=== PATIENT | male | born 1965 | race Caucasian/White ===

== ENCOUNTER 2017-04-20 16:42 | Inpatient (IN) | payer BC, OTHER ==
[2017-04-20] MEDS ORDERED: Ondansetron 4 MG/2 ML SDV IVPUSH ONE ×2 (16:50→21:25)
[2017-04-20] MEDS ORDERED: Sodium Chloride 0.9% 1,000 ML IV ONE (16:51)
[2017-04-20] MEDS: Sodium Chloride 0.9% 10 ML Syringe FLUSH PRN ×3 (17:13→23:50)
--- NOTE | 2017-04-20 17:58 | EDM.PDOC ---
ED HPI GENERAL MEDICAL PROBLEM - General Chief Complaint: Abdominal Pain Stated Complaint: ABD PAIN Time Seen by Provider: 04/20/17 16:52 Source of Information: Reports: Patient, Family History Limitations: Reports: No Limitations - History of Present Illness INITIAL COMMENTS - FREE TEXT/NARRATIVE: 51 y.o.w m s/o vasectomy in the distant past, came with his mon the ED because of sudden onset of gen abd. pain with N/V.Pt had to leave work early. No dirct trauma. No dizziness or light headedness. BP 106/67 pulse 92 RR 18 Pulse ox 94 % on RA Temp 36.8 Onset: Sudden Onset Date: 04/20/17 Onset Time: 09:00 Duration: Getting Worse Location: Reports: Abdomen Quality: Reports: Ache, Burning, Dull, Pressure, Stabbing, Throbbing Severity: Severe Improves with: Reports: None Worsens with: Reports: Movement Context: Reports: Other (s/p vasectomy, sudden onset of lefy lower abd. pain) Associated Symptoms: Reports: Nausea/Vomiting, Weakness Left Lower Abdomen Pain Score (Numeric/FACES): 6 denies pain as of the moment Pain Score (Numeric/FACES): 0 - Related Data Allergies Allergy/AdvReac Type Severity Reaction Status Date / Time No Known Allergies Allergy Verified 04/20/17 16:52 Home Meds: Home Meds NK [No Known Home Meds] 06/11/14 [History] Past Medical History - Past Health History Medical/Surgical History: Denies Medical/Surgical History - Infectious Disease History Infectious Disease History: Reports: Chicken Pox - Past Surgical History GI Surgical History: Reports: Colonoscopy Male Surgical History: Reports: Vasectomy Social & Family History - Family History Family Medical History: Noncontributory - Tobacco Use Smoking Status *Q: Never Smoker Second Hand Smoke Exposure: No - Caffeine Use Caffeine Use: Reports: None - Alcohol Use Days Per Week of Alcohol Use: 0 - Recreational Drug Use Recreational Drug Use: No ED ROS GENERAL - Review of Systems Review Of Systems: See Below Constitutional: Reports: Malaise, Weakness HEENT: Reports: No Symptoms Respiratory: Reports: No Symptoms Cardiovascular: Reports: No Symptoms Endocrine: Reports: No Symptoms GI/Abdominal: Reports: Abdominal Pain : Reports: No Symptoms Musculoskeletal: Reports: No Symptoms Skin: Reports: No Symptoms Neurological: Reports: No Symptoms Psychiatric: Reports: No Symptoms Hematologic/Lymphatic: Reports: No Symptoms Immunologic: Reports: No Symptoms ED EXAM, GI/ABD - Physical Exam Exam: See Below Exam Limited By: No Limitations General Appearance: Alert, WD/WN, Moderate Distress Eyes: Bilateral: Normal Appearance Ears: Normal External Exam Nose: Normal Inspection, Normal Mucosa Throat/Mouth: Normal Inspection, Normal Lips, Normal Teeth, Normal Gums Head: Atraumatic, Normocephalic Neck: Normal Inspection, Supple, Non-Tender, Full Range of Motion Respiratory/Chest: No Respiratory Distress, Lungs Clear, Normal Breath Sounds Cardiovascular: Normal Peripheral Pulses, Regular Rate, Rhythm, No Edema, No Gallop GI/Abdominal Exam: Distended, Guarding, Rigid, Rebound, Tender, Abnormal Bowel Sounds (Male) Exam: Deferred Rectal (Males) Exam: Deferred Back Exam: Normal Inspection, Full Range of Motion Extremities: Normal Inspection Neurological: Alert, Oriented, CN II-XII Intact, Normal Cognition Psychiatric: Normal Affect, Normal Mood Skin Exam: Warm, Dry, Intact, Normal Color, No Rash Lymphatic: No Adenopathy Course - Vital Signs Text/Narrative:: 51 y.o.w m s/o vasectomy in the distant past, came with his mon the ED because of sudden onset of gen abd. pain with N/V.Pt had to leave work early. No dirct trauma. No dizziness or light headedness. BP 106/67 pulse 92 RR 18 Pulse ox 94 % on RA Temp 36.8 PE: WNWD WM with N/V and abd. pain with guarding and rebound Labs:pending Imaging: Pending Impression: Acute abdomen Tx: YOGESH Palomo 7 pm: Pt was signed out to Dr. Gan at 7 pm due to shift changes. Pending abd, CT results. Lab results Last Recorded V/S: Last Vital Signs Temp 36.9 C 04/22/17 00:00 Pulse 67 04/22/17 00:00 Resp 16 04/22/17 00:00 BP 108/58 L 04/22/17 00:00 Pulse Ox 96 04/22/17 00:00 - Orders/Labs/Meds Orders: Medication Orders Hydrocodone Bitart/Acetaminophen ([place] 325-5 Mg) 1 tab PO Q4H PRN PRN Reason: Pain (mild 1-3) Hydrocodone Bitart/Acetaminophen ([place] 325-5 Mg) 2 tab PO Q4H PRN PRN Reason: Pain (moderate 4-6) Diatrizoate Meglum/Diatrizoate Sod (Gastrografin 37%) 30 ml PO . DIRECTED [facility] Last Admin: 04/20/17 19:04 Dose: 30 ml Enoxaparin Sodium (Lovenox) 30 mg SUBCUT Q24H [facility] Last Admin: 04/21/17 09:28 Dose: 30 mg Lactated Ringer's (Ringers, Lactated) 1,000 mls @ 125 mls/hr IV ASDIRECTED [facility] Last Admin: 04/21/17 20:10 Dose: 125 mls/hr Infusion: 04/21/17 20:10 Dose: 125 mls/hr Admin: 04/21/17 12:11 Dose: 125 mls/hr Infusion: 04/21/17 11:29 Dose: 125 mls/hr Admin: 04/21/17 03:29 Dose: 125 mls/hr Ketorolac Tromethamine (Toradol) 30 mg IVPUSH Q6H [facility] Last Admin: 04/22/17 02:12 Dose: 30 mg Admin: 04/21/17 20:05 Dose: 30 mg Admin: 04/21/17 14:14 Dose: 30 mg Admin: 04/21/17 08:08 Dose: 30 mg Morphine Sulfate (Morphine) 2 mg IVPUSH Q1H PRN PRN Reason: Pain (severe 7-10) Morphine Sulfate (Morphine Map Plotter 30 Mg In 30 Ml) 30 mg IV ASDIRECTED PRN; Protocol PRN Reason: Pain Last Admin: 04/21/17 00:13 Dose: 30 mg Sodium Chloride (Saline Flush) 10 ml FLUSH ASDIRECTED PRN PRN Reason: Keep Vein Open Last Admin: 04/20/17 23:50 Dose: 10 ml Admin: 04/20/17 19:50 Dose: 10 ml Admin: 04/20/17 17:13 Dose: 10 ml Labs: Laboratory Tests 04/20/17 04/20/17 04/20/17 Range/Units 17:10 17:10 19:18 WBC 13.8 H (4.5-12.0) X10-3/uL RBC 6.06 H (4.30-5.75) x10(6)uL Hgb 17.7 H (11.5-15.5) g/dL Hct 51.9 H (30.0-51.3) % MCV 85.5 (80-96) fL MCH 29.2 (27.7-33.6) pg MCHC 34.1 (32.2-35.4) g/dL RDW 12.7 (11.5-15.5) % Plt Count 237 (125-369) X10(3)uL MPV 8.3 (7.4-10.4) fL Neut % (Auto) 84.0 H (46-82) % Lymph % (Auto) 10.2 L (13-37) % [place] % (Auto) 3.2 L (4-12) % Eos % (Auto) 0 L (1.0-5.0) % Baso % (Auto) 3 H (0-2) % Neut # (Auto) 11.6 H (1.6-8.3) # Lymph # (Auto) 1.4 (0.6-5.0) # Kendall # (Auto) 0.4 (0.0-1.3) # Eos # (Auto) 0.0 (0.0-0.8) # Baso # (Auto) 0.4 H (0.0-0.2) # Sodium 141 (135-145) mmol/L Potassium 4.3 (3.5-5.3) mmol/L Chloride 103 (100-110) mmol/L Carbon Dioxide 25 (21-32) mmol/L BUN 16 (7-18) mg/dL Creatinine 1.2 (0.70-1.30) mg/dL Est Cr Clr Drug Dosing 75.36 mL/min Estimated GFR (MDRD) > 60 (>60) BUN/Creatinine Ratio 13.3 (9-20) Glucose 118 H (80-116) mg/dL Calcium 10.3 H (8.6-10.2) mg/dL Total Bilirubin 1.2 (0.1-1.3) mg/dL Direct Bilirubin 0.16 (0.10-0.20) mg/dL AST 21 (5-25) IU/L ALT 31 (12-36) U/L Alkaline Phosphatase 64 (56-112) IU/L Total Protein 8.1 H (6.0-8.0) g/dL Albumin 4.4 (3.5-5.2) g/dL Amylase 86 (25-115) U/L Urine Color Yellow (YELLOW) Urine Appearance Clear (CLEAR) Urine pH 8.0 H (5.0-6.5) Ur Specific [place] 1.010 (1.010-1.025) Urine Protein Negative (NEGATIVE) mg/dL Urine Glucose (UA) Normal (NEGATIVE) mg/dL Urine Ketones Negative (NEGATIVE) mg/dL Urine Occult Blood Negative (NEGATIVE) Urine Nitrite Negative (NEGATIVE) Urine Bilirubin Negative (NEGATIVE) Urine Urobilinogen Normal (NEGATIVE) mg/dL Ur Leukocyte Esterase Negative (NEGATIVE) Urine RBC 0-5 (0) Urine WBC 0-5 (0) Ur Squamous Epith Cells Occasional (NS,R,O) Urine Bacteria Rare H (NS) Meds: Medications Generic Name Dose Route Start Last Admin Trade Name Freq PRN Reason Stop Dose Admin Hydrocodone Bitart/Acetaminophen 1 tab 04/20/17 22:43 [place] 325-5 Mg PO Q4H PRN Pain (mild 1-3) Hydrocodone Bitart/Acetaminophen 2 tab 04/20/17 22:43 [place] 325-5 Mg PO Q4H PRN Pain (moderate 4-6) Diatrizoate Meglum/Diatrizoate Sod 30 ml 04/20/17 18:30 04/20/17 19:04 Gastrografin 37% PO 30 ml . DIRECTED [facility] Administration Enoxaparin Sodium 30 mg 04/21/17 09:00 04/21/17 09:28 Lovenox SUBCUT 30 mg Q24H [facility] Administration Lactated Ringer's 1,000 mls @ 125 mls/hr 04/20/17 22:45 04/21/17 20:10 Ringers, Lactated IV 125 mls/hr ASDIRECTED [facility] Administration Ketorolac Tromethamine 30 mg 04/21/17 08:00 04/22/17 02:12 Toradol IVPUSH 30 mg Q6H [facility] Administration Morphine Sulfate 2 mg 04/20/17 22:43 Morphine IVPUSH Q1H PRN Pain (severe 7-10) Morphine Sulfate 30 mg 04/20/17 22:43 04/21/17 00:13 Morphine Map Plotter 30 Mg In 30 Ml IV 30 mg ASDIRECTED PRN Administration Pain Protocol Sodium Chloride 10 ml 04/20/17 16:46 04/20/17 23:50 Saline Flush FLUSH 10 ml ASDIRECTED PRN Administration Keep Vein Open Discontinued Medications Generic Name Dose Route Start Last Admin Trade Name Willa PRN Reason Stop Dose Admin Cefazolin Sodium Confirm 04/21/17 04:56 04/21/17 05:02 Ancef Administered 04/21/17 04:57 Not Given Dose 1 gm .ROUTE .STK-MED ONE Sodium Chloride 1,000 mls @ 999 mls/hr 04/20/17 16:51 04/20/17 17:15 Normal Saline IV 04/20/17 17:51 999 mls/hr .BOLUS ONE Administration Piperacillin Sod/Tazobactam 50 mls @ 100 mls/hr 04/20/17 18:00 04/21/17 05:32 Sod 3.375 gm/ Sodium Chloride IV 100 mls/hr Q6H [facility] Administration Cefazolin Sodium 1 gm/ Sodium 50 mls @ 200 mls/hr 04/20/17 23:00 04/21/17 00: 58 Chloride IV 04/21/17 07:14 Not Given Q8H [facility] Cefazolin Sodium 1 gm/ Sodium 50 mls @ 200 mls/hr 04/21/17 05:00 04/21/17 05: 06 Chloride IV 04/21/17 13:14 200 mls/hr Q8H [facility] Administration Influenza Virus Vaccine 60 mcg 04/21/17 01:00 Fluzone Quad [id number] IM 04/21/17 01:01 .ONCE ONE Iopamidol 100 ml 04/20/17 18:29 04/20/17 19:04 Isovue-370 (76%) IV 04/20/17 18:30 85 ml . DIRECTED ONE Administration Morphine Sulfate 4 mg 04/20/17 19:39 04/20/17 19:46 Morphine IVPUSH 04/20/17 19:40 4 mg ONETIME ONE Administration Ondansetron HCl 8 mg 04/20/17 16:50 04/20/17 17:22 Zofran IVPUSH 04/20/17 16:51 8 mg ONETIME ONE Administration Departure - Departure Time of Disposition: 23:55 Disposition: Admitted As Inpatient 64 Condition: Fair Clinical Impression: SBO (small bowel obstruction) - Discharge Information
[2017-04-20] MEDS: Piperacillin/Tazobactam 3.375 GM in Sodium Chloride 0.9% 50 ML IV SCH (18:23)
[2017-04-20] MEDS ORDERED: Iopamidol 755 Mg/ML 100 ML Bottle IV ONE (18:29)
[2017-04-20] MEDS ORDERED: Diatrizoate Meglumine/Diatrizoate Sodium 37% 30 ML Bottle PO SCH (18:30)
[2017-04-20] MEDS ORDERED: Morphine 4 MG/ML Syringe IVPUSH ONE (19:39)
[2017-04-20] MEDS ORDERED: Succinylcholine 200 MG/10 ML MDV IV ONE (21:25)
[2017-04-20] MEDS ORDERED: Rocuronium 100 MG/10 ML MDV IV ONE (21:25)
[2017-04-20] MEDS ORDERED: Morphine 10 MG/ML Syringe IM ONE (21:25)
[2017-04-20] MEDS ORDERED: Propofol 200 MG/20 ML SDV IV ONE (21:25)
[2017-04-20] MEDS ORDERED: Dexamethasone 4 MG/ML 5 ML MDV IVPUSH ONE (21:25)
[2017-04-20] MEDS ORDERED: hydrOXYzine HCl 50 MG/ML SDV IM ONE (21:25)
[2017-04-20] MEDS ORDERED: diphenhydrAMINE 50 MG/ML SDV IV ONE (21:25)
[2017-04-20] MEDS ORDERED: ceFAZolin 1 GM Vial IV ONE (21:25)
[2017-04-20] MEDS ORDERED: Neostigmine Methylsulfate 1 MG/ML 5 ML Syringe IV ONE (21:25)
[2017-04-20] MEDS ORDERED: fentaNYL 100 MCG/2 ML SDV IV ONE (21:25)
[2017-04-20] MEDS ORDERED: Ketorolac 30 MG/ML SDV IVPUSH ONE (21:25)
[2017-04-20] MEDS ORDERED: Lactated Ringers 1,000 ML IV ONE (21:25)
[2017-04-20] MEDS ORDERED: Midazolam 1 MG/ML 2 ML SDV IV ONE (21:25)
[2017-04-20] MEDS ORDERED: Morphine PF 30 MG/30 ML PCA Vial IV PRN (22:43)
[2017-04-20] MEDS ORDERED: Morphine 2 MG/ML Syringe IVPUSH PRN (22:43)
[2017-04-20] MEDS ORDERED: Acetaminophen/HYDROcodone 325-5 MG Tab PO PRN (22:43)
--- NOTE | 2017-04-20 22:44 | PCM.OPNOTE ---
- General Post-Op/Procedure Note Date of Surgery/Procedure: 04/20/17 Operative Procedure(s): Exploratory laparotomy with release of small bowel obstruction Findings: Closed loop obstruction in mid jejunum secondary to adhesions. No other abnormalities noted Pre Op Diagnosis: Small bowel obstruction Post-Op Diagnosis: Same Anesthesia Technique: General ET Tube Primary Surgeon: Rick Castellanos Pathology: none Output, Urine Amount: 0 EBL in mLs: 50 Complications: None Condition: Fair
[2017-04-20] MEDS ORDERED: ceFAZolin 1 GM in Sodium Chloride 0.9% 50 ML IV SCH (23:00)
[2017-04-21] MEDS: Piperacillin/Tazobactam 3.375 GM in Sodium Chloride 0.9% 50 ML IV SCH ×2 (00:24→05:32)
[2017-04-21] MEDS ORDERED: FLU Vacc QS 2017-18 (36mos UP)/PF 60 MCG/0.5 ML Syringe IM ONE (01:00)
--- NOTE | 2017-04-21 01:10 | HP ---
ADMISSION DATE: 04/20/2017 EMERGENCY ROOM CONSULTATION AND HISTORY AND PHYSICAL HISTORY: This 51-year-old male was feeling well this morning until early during the work day, he began developing lower abdominal pain. This pain persisted continuously and progressed to the point where within an hour or two, he was unable to continue working and had to go home. Throughout the day, the pain has continued and prompted his presentation to the emergency room. He describes the pain as most severe in the lower abdomen and left lower quadrant, but it has been somewhat diffuse throughout the late afternoon and evening. The pain is also recently increased with activity such as walking or riding in a car. He did not feel that the pain was crampy, but more a continuous pain. This pain has been associated with multiple episodes of vomiting. He says his last bowel movement was yesterday morning. He has not had any stool or flatus today. He has been able to void normally. Over the last several weeks, he has noticed his appetite to be slightly decreased, although his weight has stayed the same, and also associated with this noticed a slight increasing constipation, but generally his bowel function has been satisfactory and he has not seen any blood in the stool. The patient has never had any similar symptoms. Upon presentation to the emergency room, the patient has been evaluated and blood work has been drawn. Significant abnormalities of note, a slightly increased WBC of over 13,000 and increased hemoglobin at 17.7. Liver functions are normal. Potassium is 4.3, and urinalysis is unremarkable. The patient underwent a CT scan of the abdomen and pelvis. This was interpreted by the radiologist as showing a small bowel obstruction with a rather sharp transition between dilated and normal caliber small bowel in the left lower quadrant. There was also noted a renal stone, but no other significant abnormalities were noted. Specifically, his organs appeared normal and there was no indication of diverticulitis. PAST MEDICAL HISTORY: Notes that he has been generally healthy. MEDICATIONS: He does not take routine prescription medications. ALLERGIES: He has no known drug allergies. PAST SURGICAL HISTORY: He has never had any previous abdominal or pelvic surgery. His only previous procedure was vasectomy. SOCIAL HISTORY: He does not smoke, although he says he was exposed to secondhand smoke as a child. The patient is . He lives in [place], and he works at [employer], generally a sedentary job. FAMILY HISTORY: Negative for any known serious health problems in his parents. He does recall that his father had some unknown bowel difficulty, but he does not know the specific diagnosis. SYSTEM REVIEW: The patient denies any recent cough, cold, or sore throat symptoms. He has not been experiencing any chest pain or palpitations. No shortness of breath or difficulty breathing. Generally, his appetite has been good up until this episode. No difficulty voiding. He does relate having had a colonoscopy, which was normal about 1 to 2 years ago. No extremity complaints with no unusual joint pain or extremity swelling. PHYSICAL EXAMINATION: VITAL SIGNS: Temperature is 98.1, pulse 67, and blood pressure is 140/77. Weight is 168.5 pounds. GENERAL: The patient is an alert adult male, somewhat anxious with the abdominal pain, but in no acute distress. HEENT: His head is normocephalic. There is no scleral icterus. No cervical masses are noted. NECK: Supple. HEART: Regular. LUNGS: Clear. Breath sounds are equal. There is no wheezing. He has no CVA tenderness to percussion. ABDOMEN: Shows generalized mild distention. He has tenderness to direct palpation and more fullness in the left abdomen, both upper and lower quadrants than on the right, although I do not feel a specific mass. INGUINAL: Reveals no palpable inguinal hernias or tenderness. EXTREMITIES: Show no obvious deformity or ankle edema. NEUROLOGIC: The patient is alert. No gross cognitive deficit, and no evidence of muscular weakness. IMPRESSION: Small bowel obstruction, etiology unclear. The patient's symptoms have persisted without significant improvement for over 12 hours. He has not had previous abdominal surgery, and after reviewing options, it was felt that the safest course of action for this patient is urgent laparotomy to identify and relieve the source of obstruction and try and minimize the risk of any vascular compromise of the bowel. I have discussed the proposed operative procedure with the patient, reviewing indications, options, and risks of surgery as well as the option of observation, and after consideration, he agrees to proceed with urgent laparotomy. This will be performed tonight under general anesthesia. /[id number] JEREMIAS/MIRYAM
--- NOTE | 2017-04-21 02:48 | ER ---
DATE SEEN: 04/20/2017 CHIEF COMPLAINT: Abdominal pain. HISTORY OF PRESENT ILLNESS: This is a 51-year-old male complaining of abdominal pain that started about 6 o'clock this morning, progressively getting worse, dull ache, constant and steady, associated with nausea and vomiting. Also, has had no stools since yesterday morning. REVIEW OF SYSTEMS: No fever or chills. PAST SURGICAL HISTORY: No abdominal surgeries. ALLERGIES: No known allergies. PHYSICAL EXAMINATION: VITAL SIGNS: Normal blood pressure. Temperature is normal. ENT: Negative. CHEST: Clear. ABDOMEN: Soft, tender to palpation, with no rebound or rigidity. Bowel sounds were increased. DIAGNOSTIC DATA: Labs shows a white cell count of 13,000. UA is negative. CT, possible small bowel obstruction, perhaps ureteric calculi on the left. IMPRESSION: Abdominal pain. PLAN: One liter of normal saline was given, 4 mg of IV morphine. Dr. Castellanos was consulted for the abdominal pain. TIME SEEN: 1930 hours. /[id number] ERASMO/MIRYAM
[2017-04-21] MEDS: Lactated Ringers 1,000 ML IV SCH ×3 (03:29→20:10)
[2017-04-21] MEDS ORDERED: ceFAZolin 1 GM Vial ONE (04:56)
[2017-04-21] MEDS ORDERED: ceFAZolin 1 GM in Sodium Chloride 0.9% 50 ML IV SCH (05:00)
--- NOTE | 2017-04-21 07:41 | PCM.SURGPN ---
- General Info Date of Service: 04/21/17 Date of Surgery/Procedure: 04/20/17 POD#: 1 Post-Op Diagnosis: Small Bowel Obstruction secondary to adhesions Functional Status: Reports: Pain Controlled (abdomen feels much better than pre op, minimal pain when not moving) - Review of Systems Pulmonary: Reports: No Symptoms Gastrointestinal: Denies: Nausea, Vomiting Genitourinary: Reports: No Symptoms (voided this am) Musculoskeletal: Denies: Leg Pain - Patient Data Vitals - Most Recent: Last Vital Signs Temp 97.6 F 04/21/17 03:31 Pulse 87 04/21/17 03:31 Resp 18 04/21/17 03:31 BP 100/58 L 04/21/17 03:31 Pulse Ox 96 04/21/17 03:31 Weight - Most Recent: 165 lb I&O - Last 24 Hours: Intake & Output 04/20/17 04/21/17 04/21/17 22:59 06:59 14:59 Intake Total 796 Output Total 0 500 Balance 0 296 Lab Results Last 24 Hrs: Laboratory Results - last 24 hr 04/21/17 04/21/17 Range/Units 06:15 06:15 Hgb 15.4 (11.5-15.5) g/dL Hct 44.6 (30.0-51.3) % Potassium 4.1 (3.5-5.3) mmol/L Med Orders - Current: Current Medications Hydrocodone Bitart/Acetaminophen ([place] 325-5 Mg) 1 tab PO Q4H PRN PRN Reason: Pain (mild 1-3) Hydrocodone Bitart/Acetaminophen ([place] 325-5 Mg) 2 tab PO Q4H PRN PRN Reason: Pain (moderate 4-6) Diatrizoate Meglum/Diatrizoate Sod (Gastrografin 37%) 30 ml PO . DIRECTED [facility] Last Admin: 04/20/17 19:04 Dose: 30 ml Enoxaparin Sodium (Lovenox) 30 mg SUBCUT Q24H [facility] Piperacillin Sod/Tazobactam (Sod 3.375 gm/ Sodium Chloride) 50 mls @ 100 mls/ hr IV Q6H [facility] Last Admin: 04/21/17 05:32 Dose: 100 mls/hr Lactated Ringer's (Ringers, Lactated) 1,000 mls @ 125 mls/hr IV ASDIRECTED [facility] Last Admin: 04/21/17 03:29 Dose: 125 mls/hr Cefazolin Sodium 1 gm/ Sodium (Chloride) 50 mls @ 200 mls/hr IV Q8H [facility] Stop: 04/21/17 13:14 Last Admin: 04/21/17 05:06 Dose: 200 mls/hr Morphine Sulfate (Morphine) 2 mg IVPUSH Q1H PRN PRN Reason: Pain (severe 7-10) Morphine Sulfate (Morphine Generating Station Mechanic 30 Mg In 30 Ml) 30 mg IV ASDIRECTED PRN; Protocol PRN Reason: Pain Last Admin: 04/21/17 00:13 Dose: 30 mg Sodium Chloride (Saline Flush) 10 ml FLUSH ASDIRECTED PRN PRN Reason: Keep Vein Open Last Admin: 04/20/17 23:50 Dose: 10 ml Discontinued Medications Cefazolin Sodium (Ancef) Confirm Administered Dose 1 gm .ROUTE .STK-MED ONE Stop: 04/21/17 04:57 Last Admin: 04/21/17 05:02 Dose: Not Given Sodium Chloride (Normal Saline) 1,000 mls @ 999 mls/hr IV .BOLUS ONE Stop: 04/20/17 17:51 Last Admin: 04/20/17 17:15 Dose: 999 mls/hr Cefazolin Sodium 1 gm/ Sodium (Chloride) 50 mls @ 200 mls/hr IV Q8H [facility] Stop: 04/21/17 07:14 Last Admin: 04/21/17 00:58 Dose: Not Given Influenza Virus Vaccine (Fluzone Quad [id number]) 60 mcg IM .ONCE ONE Stop: 04/21/17 01:01 Iopamidol (Isovue-370 (76%)) 100 ml IV . DIRECTED ONE Stop: 04/20/17 18:30 Last Admin: 04/20/17 19:04 Dose: 85 ml Morphine Sulfate (Morphine) 4 mg IVPUSH ONETIME ONE Stop: 04/20/17 19:40 Last Admin: 04/20/17 19:46 Dose: 4 mg Ondansetron HCl (Zofran) 8 mg IVPUSH ONETIME ONE Stop: 04/20/17 16:51 Last Admin: 04/20/17 17:22 Dose: 8 mg - Exam Wound/Incisions: Dressing Dry and Intact General: Alert, Oriented Lungs: Normal Respiratory Effort GI/Abdominal Exam: Soft, Non-Tender (away from incision), No Distention Extremities: Non-Tender, No Pedal Edema - Problem List Review Problem List Initiated/Reviewed/Updated: Yes - My Orders Last 24 Hours: Active Orders 24 hr Category Date Time Status Patient Status [ADT] Routine ADT 04/20/17 22:44 Active Ambulate [RC] 09,13,17,21 Care 04/20/17 22:43 Active Antiembolic Devices [RC] 08,16,00 Care 04/20/17 22:47 Active Intake and Output [RC] 08,16,00 Care 04/20/17 22:45 Active Oxygen Therapy [RC] PRN Care 04/20/17 22:44 Active RT Incentive Spirometry [RC] Q1HWA Care 04/20/17 22:43 Active VTE/DVT Education [RC] Click to Edit Care 04/20/17 22:47 Active Vital Signs [RC] 04,08,12,16,20,00 Care 04/20/17 22:44 Active Acetaminophen/HYDROcodone [[place] 325-5 MG] Med 04/20/17 22:43 Active 1 tab PO Q4H PRN Acetaminophen/HYDROcodone [[place] 325-5 MG] Med 04/20/17 22:43 Active 2 tab PO Q4H PRN Enoxaparin [Lovenox] Med 04/21/17 09:00 Pending 30 mg SUBCUT Q24H Lactated Ringers [Ringers, Lactated] 1,000 ml Med 04/20/17 22:45 Active IV ASDIRECTED Morphine Med 04/20/17 22:43 Active 2 mg IVPUSH Q1H PRN Morphine PF [Morphine CAR[employer] SURVEYOR 30 MG in 30 ML] Med 04/20/17 22:43 Active 30 mg IV ASDIRECTED PRN ceFAZolin [Ancef] 1 gm Med 04/21/17 05:00 Active Sodium Chloride 0.9% [Normal Saline] 50 ml IV Q8H DVT/VTE Prophylaxis Reflex [OM.PC] Per Unit Routine Oth 04/20/17 22:47 Ordered Sequential Compression Device [OM.PC] Routine Oth 04/20/17 22:43 Ordered Resuscitation Status Routine Resus Stat 04/20/17 22:43 Ordered Medication Orders Hydrocodone Bitart/Acetaminophen ([place] 325-5 Mg) 1 tab PO Q4H PRN PRN Reason: Pain (mild 1-3) Hydrocodone Bitart/Acetaminophen ([place] 325-5 Mg) 2 tab PO Q4H PRN PRN Reason: Pain (moderate 4-6) Diatrizoate Meglum/Diatrizoate Sod (Gastrografin 37%) 30 ml PO . DIRECTED [facility] Last Admin: 04/20/17 19:04 Dose: 30 ml Enoxaparin Sodium (Lovenox) 30 mg SUBCUT Q24H [facility] Piperacillin Sod/Tazobactam (Sod 3.375 gm/ Sodium Chloride) 50 mls @ 100 mls/ hr IV Q6H [facility] Last Admin: 04/21/17 05:32 Dose: 100 mls/hr Admin: 04/21/17 00:24 Dose: 100 mls/hr Admin: 04/20/17 18:23 Dose: 100 mls/hr Lactated Ringer's (Ringers, Lactated) 1,000 mls @ 125 mls/hr IV ASDIRECTED [facility] Last Admin: 04/21/17 03:29 Dose: 125 mls/hr Cefazolin Sodium 1 gm/ Sodium (Chloride) 50 mls @ 200 mls/hr IV Q8H [facility] Stop: 04/21/17 13:14 Last Admin: 04/21/17 05:06 Dose: 200 mls/hr Morphine Sulfate (Morphine) 2 mg IVPUSH Q1H PRN PRN Reason: Pain (severe 7-10) Morphine Sulfate (Morphine Generating Station Mechanic 30 Mg In 30 Ml) 30 mg IV ASDIRECTED PRN; Protocol PRN Reason: Pain Last Admin: 04/21/17 00:13 Dose: 30 mg Sodium Chloride (Saline Flush) 10 ml FLUSH ASDIRECTED PRN PRN Reason: Keep Vein Open Last Admin: 04/20/17 23:50 Dose: 10 ml Admin: 04/20/17 19:50 Dose: 10 ml Admin: 04/20/17 17:13 Dose: 10 ml - Assessment Assessment (Free Text/Narrative):: POD#1 Lysis of adhesions for SBO - doing well - Plan Plan (Free Text/Narrative):: Add Torodal to allow less MS use May have sips of water encouraged ambulation
[2017-04-21] MEDS: Ketorolac 30 MG/ML SDV IVPUSH SCH ×3 (08:08→20:05)
--- NOTE | 2017-04-21 08:40 | CT ---
INDICATION: Lower abdominal pain, tender on left for [address] ABDOMEN AND PELVIS WITH CONTRAST: Spiral 2.5-mm axial sections were obtained through the abdomen and pelvis with oral and IV contrast (85 mL Isovue- 370 at 2.4 mL per second), with sagittal and coronal reconstructions, 2017 - no comparisons. Total Exam DLP = 528.32 mGy-cm. The lower lung kumar and pleural spaces visualized appeared normal. The heart appeared normal in size. No gallstones are demonstrated. The liver, spleen, pancreas, adrenal glands, and right kidney were unremarkable. The left kidney showed evidence of a tiny low-density lesion in the upper pole anterior cortex and in the upper pole posteromedial cortex, most likely representing benign cystic structures. They are of tiny size, however, and are not able to be definitively described otherwise. The appendix was visualized on axial images #138 through #148 and appeared normal. The urinary bladder was unremarkable. No definite obstructive uropathy is seen. There is, however, noted a duplex collecting system at the left kidney with the lower pole collecting system slightly more dilated than the upper and filling out less promptly with contrast than the upper. Likely this does not represent obstructive uropathy, as the presence of an 8-mm calcific density at the base of the bladder is apparently more caudal in location than the actual ureterovesical junction. There is dilatation of the proximal small bowel loops - jejunum to the mid jejunum, there there is a sudden cutoff - fusiform narrowing and narrowing of the small bowel at that site along the lateral aspect of the lower left abdomen - at the upper-most pelvis. Subsequently, the small bowel loops were normal in caliber beyond that site. At that site, there appears to be some thickening of the wall of the small bowel, limited to that area. A process such as Crohn's disease would be a consideration, but should be correlated clinically. A neoplastic process is felt to be less likely. Follow-up studies may be warranted. The remainder of the bowel was unremarkable, with gas still seen within the colon to the rectal area, suggesting an incomplete obstructive process of mechanical nature, best seen on coronal images #29 through #39. No other organomegaly, mass lesions, or free fluid collections were identified. No retroperitoneal masses were seen. IMPRESSION: Findings are compatible with a small-bowel obstruction of mechanical nature at the level of the mid jejunum in the left flank laterally. The obstruction does not appear to be complete, as there is gas in the colon and more distal small bowel. There does appear to be slight thickening of the wall of the immediately adjacent small bowel, distal to the dilated jejunum. Etiology is indeterminate. The possibility of a process such as Crohn's disease is unable to be excluded. However, there is no fat stranding surrounding that loop of bowel to strongly suggest a significant inflammatory process. A neoplastic process, however, is felt to be unlikely with this appearance. Follow-up may be warranted, depending upon clinical course. CT PELVIS: Examination of the pelvis was obtained by CT, as noted above, and revealed dilated loops of small bowel, the site of obstruction of which is in the left flank - left lower quadrant - upper pelvis. No other organomegaly, mass lesions, or free fluid collections were identified in the pelvis. Report was called to Dr. Gan at 1935 hours, 04/20/2017. [facility]
[2017-04-21] MEDS: Enoxaparin 30 MG/0.3 ML Syringe SUBCUT SCH (09:28)
--- NOTE | 2017-04-21 09:42 | OR ---
DATE OF OPERATION: 04/20/2017 SURGEON: Rick Castellanos MD PREOPERATIVE DIAGNOSIS: Acute small bowel obstruction. POSTOPERATIVE DIAGNOSIS: Acute closed loop small bowel obstruction secondary to adhesions. OPERATION PERFORMED: Exploratory laparotomy with release of small bowel obstruction. INDICATIONS FOR SURGERY: This 51-year-old male presented with a greater than 12- hour history of continued abdominal pain, vomiting, and distention. CT scan identified findings consistent with a small bowel obstruction with a dilated loop of bowel in the left side of the abdomen. Radiologist interpreted a sharp cut off between dilated and compressed small bowel consistent with this near- complete obstruction. FINDINGS: The patient had a closed loop complete obstruction of the small bowel in the mid jejunum. This appeared to be secondary to adhesions. The bowel caught in the loop was distended, reddish in color, and slightly dusky on appearance initially, but after release, it seemed to regain satisfactory color and did peristalse. There was no evidence of mass effect in the area of the adhesions or the small bowel. The small bowel proximal to this point of obstruction was dilated, but the fluid was able to be milked easily past this point once the obstruction had been released. The remainder of the small bowel was collapsed distally and dilated proximally, but otherwise appeared normal. No other intraabdominal abnormalities were noted. PROCEDURE IN DETAIL: The patient was taken to the operating room. He was given general endotracheal anesthesia and the abdomen was sterilely prepped with Betadine and draped. A vertical midline abdominal incision was made, carried into the peritoneal cavity. Careful examination of the small bowel was performed and the dilated loop of bowel with obstruction was noted in the left mid abdomen. Using careful blunt dissection, the loop of bowel was able to be freed and brought into full view through the incision. Carefully, the bowel was examined. There did not appear to be any injury to the bowel and color, although, hyperemic, of this limited loop that had been obstructed appeared to be satisfactory. Peristalsis was noted and the fluid was easily able to be milked through this point indicating no intrinsic obstruction. The small bowel was examined from the ligament of Treitz to the ileocecal valve and no other abnormalities were noted. Palpation of the colon and upper abdominal organs did not reveal any palpable or visible mass or other abnormality. The small bowel was laid back into the abdominal cavity carefully and copious irrigation of the abdominal cavity was performed. With no evidence of any complication, the wound was closed approximating the midline fascia with running #2 Prolene and interrupted #1 PDS two suture. The wound was irrigated and then skin edges were approximated with skin jeff. A sterile dressing was placed. The patient was awakened, extubated, and taken from the operating room in satisfactory condition. ESTIMATED BLOOD LOSS: 50 mL. COMPLICATIONS: None. PROGNOSIS: Good. /[id number] JEREMIAS/MIRYAM
[2017-04-22] MEDS: Ketorolac 30 MG/ML SDV IVPUSH SCH ×4 (02:12→20:24)
[2017-04-22] MEDS: Lactated Ringers 1,000 ML IV SCH ×3 (03:54→20:25)
[2017-04-22] MEDS: Enoxaparin 30 MG/0.3 ML Syringe SUBCUT SCH (08:38)
--- NOTE | 2017-04-22 11:49 | PCM.SURGPN ---
- General Info Date of Service: 04/22/17 POD#: 2 Functional Status: Reports: Pain Controlled, Tolerating Diet, Ambulating, Other (flatus ) - Review of Systems Gastrointestinal: Reports: Abdominal Pain (mild incisional ), Flatus - Patient Data Vitals - Most Recent: Last Vital Signs Temp 36.4 C 04/22/17 08:00 Pulse 58 L 04/22/17 08:00 Resp 20 04/22/17 08:00 BP 123/53 L 04/22/17 08:00 Pulse Ox 100 04/22/17 08:00 Weight - Most Recent: 74.843 kg I&O - Last 24 Hours: Intake & Output 04/21/17 04/22/17 04/22/17 22:59 06:59 14:59 Intake Total 978 1117 Output Total 400 700 Balance 578 417 Med Orders - Current: Current Medications Hydrocodone Bitart/Acetaminophen ([place] 325-5 Mg) 1 tab PO Q4H PRN PRN Reason: Pain (mild 1-3) Hydrocodone Bitart/Acetaminophen ([place] 325-5 Mg) 2 tab PO Q4H PRN PRN Reason: Pain (moderate 4-6) Diatrizoate Meglum/Diatrizoate Sod (Gastrografin 37%) 30 ml PO . DIRECTED [facility] Last Admin: 04/20/17 19:04 Dose: 30 ml Enoxaparin Sodium (Lovenox) 30 mg SUBCUT Q24H [facility] Last Admin: 04/22/17 08:38 Dose: 30 mg Lactated Ringer's (Ringers, Lactated) 1,000 mls @ 125 mls/hr IV ASDIRECTED [facility] Last Admin: 04/22/17 03:54 Dose: 125 mls/hr Ketorolac Tromethamine (Toradol) 30 mg IVPUSH Q6H [facility] Last Admin: 04/22/17 07:25 Dose: 30 mg Morphine Sulfate (Morphine) 2 mg IVPUSH Q1H PRN PRN Reason: Pain (severe 7-10) Sodium Chloride (Saline Flush) 10 ml FLUSH ASDIRECTED PRN PRN Reason: Keep Vein Open Last Admin: 04/20/17 23:50 Dose: 10 ml Discontinued Medications Cefazolin Sodium (Ancef) Confirm Administered Dose 1 gm .ROUTE .STK-MED ONE Stop: 04/21/17 04:57 Last Admin: 04/21/17 05:02 Dose: Not Given Sodium Chloride (Normal Saline) 1,000 mls @ 999 mls/hr IV .BOLUS ONE Stop: 04/20/17 17:51 Last Admin: 04/20/17 17:15 Dose: 999 mls/hr Piperacillin Sod/Tazobactam (Sod 3.375 gm/ Sodium Chloride) 50 mls @ 100 mls/ hr IV Q6H [facility] Last Admin: 04/21/17 05:32 Dose: 100 mls/hr Cefazolin Sodium 1 gm/ Sodium (Chloride) 50 mls @ 200 mls/hr IV Q8H [facility] Stop: 04/21/17 07:14 Last Admin: 04/21/17 00:58 Dose: Not Given Cefazolin Sodium 1 gm/ Sodium (Chloride) 50 mls @ 200 mls/hr IV Q8H [facility] Stop: 04/21/17 13:14 Last Admin: 04/21/17 05:06 Dose: 200 mls/hr Influenza Virus Vaccine (Fluzone Quad [id number]) 60 mcg IM .ONCE ONE Stop: 04/21/17 01:01 Iopamidol (Isovue-370 (76%)) 100 ml IV . DIRECTED ONE Stop: 04/20/17 18:30 Last Admin: 04/20/17 19:04 Dose: 85 ml Morphine Sulfate (Morphine) 4 mg IVPUSH ONETIME ONE Stop: 04/20/17 19:40 Last Admin: 04/20/17 19:46 Dose: 4 mg Morphine Sulfate (Morphine Liner Installer 30 Mg In 30 Ml) 30 mg IV ASDIRECTED PRN; Protocol PRN Reason: Pain Last Admin: 04/21/17 00:13 Dose: 30 mg Ondansetron HCl (Zofran) 8 mg IVPUSH ONETIME ONE Stop: 04/20/17 16:51 Last Admin: 04/20/17 17:22 Dose: 8 mg - Exam Wound/Incisions: Healing Well, Dressing Dry and Intact, No Drainage. No: Erythema General: Alert, Oriented, Cooperative, No Acute Distress Lungs: Clear to Auscultation, Normal Respiratory Effort Cardiovascular: Regular Rate, Regular Rhythm GI/Abdominal Exam: Normal Bowel Sounds, Soft, No Distention Skin: Warm, Dry, Intact - Problem List & Annotations (1) SBO (small bowel obstruction) SNOMED Code(s): 731309061 Code(s): K56.609 - UNSP INTESTNL OBST, UNSP TO PARTIAL VERSUS COMPLETE OBST Status: Acute Current Visit: Yes - Problem List Review Problem List Initiated/Reviewed/Updated: Yes - My Orders Last 24 Hours: Active Orders 24 hr Category Date Time Status Regular Diet [DIET] Diet 04/22/17 Dinner Ordered Medication Orders Hydrocodone Bitart/Acetaminophen ([place] 325-5 Mg) 1 tab PO Q4H PRN PRN Reason: Pain (mild 1-3) Hydrocodone Bitart/Acetaminophen ([place] 325-5 Mg) 2 tab PO Q4H PRN PRN Reason: Pain (moderate 4-6) Diatrizoate Meglum/Diatrizoate Sod (Gastrografin 37%) 30 ml PO . DIRECTED [facility] Last Admin: 04/20/17 19:04 Dose: 30 ml Enoxaparin Sodium (Lovenox) 30 mg SUBCUT Q24H [facility] Last Admin: 04/22/17 08:38 Dose: 30 mg Admin: 04/21/17 09:28 Dose: 30 mg Lactated Ringer's (Ringers, Lactated) 1,000 mls @ 125 mls/hr IV ASDIRECTED [facility] Last Admin: 04/22/17 03:54 Dose: 125 mls/hr Infusion: 04/22/17 03:54 Dose: 125 mls/hr Admin: 04/21/17 20:10 Dose: 125 mls/hr Infusion: 04/21/17 20:10 Dose: 125 mls/hr Admin: 04/21/17 12:11 Dose: 125 mls/hr Infusion: 04/21/17 11:29 Dose: 125 mls/hr Admin: 04/21/17 03:29 Dose: 125 mls/hr Ketorolac Tromethamine (Toradol) 30 mg IVPUSH Q6H [facility] Last Admin: 04/22/17 07:25 Dose: 30 mg Admin: 04/22/17 02:12 Dose: 30 mg Admin: 04/21/17 20:05 Dose: 30 mg Admin: 04/21/17 14:14 Dose: 30 mg Admin: 04/21/17 08:08 Dose: 30 mg Morphine Sulfate (Morphine) 2 mg IVPUSH Q1H PRN PRN Reason: Pain (severe 7-10) Sodium Chloride (Saline Flush) 10 ml FLUSH ASDIRECTED PRN PRN Reason: Keep Vein Open Last Admin: 04/20/17 23:50 Dose: 10 ml Admin: 04/20/17 19:50 Dose: 10 ml Admin: 04/20/17 17:13 Dose: 10 ml - Assessment Assessment (Free Text/Narrative):: POD #2 doing well. 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
[2017-04-22] MEDS: Acetaminophen/HYDROcodone 325-5 MG Tab PO PRN (20:29)
[2017-04-23] MEDS: Ketorolac 30 MG/ML SDV IVPUSH SCH ×2 (01:27→07:31)
[2017-04-23] MEDS: Acetaminophen/HYDROcodone 325-5 MG Tab PO PRN (01:32)
[2017-04-23] MEDS: Lactated Ringers 1,000 ML IV SCH (04:18)
[2017-04-23] MEDS: Enoxaparin 30 MG/0.3 ML Syringe SUBCUT SCH (08:42)
[2017-04-23] MEDS ORDERED: Bisacodyl 10 MG Supp RECTAL ONE (09:24)
--- NOTE | 2017-04-23 09:31 | PCM.SURGPN ---
- General Info Date of Service: 04/23/17 POD#: 3 - Review of Systems General: Reports: No Symptoms Gastrointestinal: Reports: Abdominal Pain (incisional ), Flatus, Other (no b m yet ) - Patient Data Vitals - Most Recent: Last Vital Signs Temp 37.2 C 04/23/17 07:51 Pulse 68 04/23/17 07:51 Resp 16 04/23/17 07:51 BP 101/60 04/23/17 07:51 Pulse Ox 98 04/23/17 07:51 Weight - Most Recent: 74.843 kg I&O - Last 24 Hours: Intake & Output 04/22/17 04/23/17 04/23/17 22:59 06:59 14:59 Intake Total 1394 691 Output Total 1700 600 Balance -306 91 Med Orders - Current: Current Medications Hydrocodone Bitart/Acetaminophen ([place] 325-5 Mg) 1 tab PO Q4H PRN PRN Reason: Pain (mild 1-3) Last Admin: 04/23/17 01:32 Dose: 1 tab Hydrocodone Bitart/Acetaminophen ([place] 325-5 Mg) 2 tab PO Q4H PRN PRN Reason: Pain (moderate 4-6) Bisacodyl (Dulcolax) 10 mg RECTAL ONETIME ONE Stop: 04/23/17 09:25 Diatrizoate Meglum/Diatrizoate Sod (Gastrografin 37%) 30 ml PO . DIRECTED [facility] Last Admin: 04/20/17 19:04 Dose: 30 ml Enoxaparin Sodium (Lovenox) 30 mg SUBCUT Q24H [facility] Last Admin: 04/23/17 08:42 Dose: 30 mg Ketorolac Tromethamine (Toradol) 30 mg IVPUSH Q6H [facility] Last Admin: 04/23/17 07:31 Dose: 30 mg Sodium Chloride (Saline Flush) 10 ml FLUSH ASDIRECTED PRN PRN Reason: Keep Vein Open Last Admin: 04/20/17 23:50 Dose: 10 ml Discontinued Medications Cefazolin Sodium (Ancef) Confirm Administered Dose 1 gm .ROUTE .STK-MED ONE Stop: 04/21/17 04:57 Last Admin: 04/21/17 05:02 Dose: Not Given Sodium Chloride (Normal Saline) 1,000 mls @ 999 mls/hr IV .BOLUS ONE Stop: 04/20/17 17:51 Last Admin: 04/20/17 17:15 Dose: 999 mls/hr Piperacillin Sod/Tazobactam (Sod 3.375 gm/ Sodium Chloride) 50 mls @ 100 mls/ hr IV Q6H [facility] Last Admin: 04/21/17 05:32 Dose: 100 mls/hr Cefazolin Sodium 1 gm/ Sodium (Chloride) 50 mls @ 200 mls/hr IV Q8H [facility] Stop: 04/21/17 07:14 Last Admin: 04/21/17 00:58 Dose: Not Given Lactated Ringer's (Ringers, Lactated) 1,000 mls @ 125 mls/hr IV ASDIRECTED [facility] Last Admin: 04/23/17 04:18 Dose: 125 mls/hr Cefazolin Sodium 1 gm/ Sodium (Chloride) 50 mls @ 200 mls/hr IV Q8H [facility] Stop: 04/21/17 13:14 Last Admin: 04/21/17 05:06 Dose: 200 mls/hr Influenza Virus Vaccine (Fluzone Quad [id number]) 60 mcg IM .ONCE ONE Stop: 04/21/17 01:01 Iopamidol (Isovue-370 (76%)) 100 ml IV . DIRECTED ONE Stop: 04/20/17 18:30 Last Admin: 04/20/17 19:04 Dose: 85 ml Morphine Sulfate (Morphine) 4 mg IVPUSH ONETIME ONE Stop: 04/20/17 19:40 Last Admin: 04/20/17 19:46 Dose: 4 mg Morphine Sulfate (Morphine) 2 mg IVPUSH Q1H PRN PRN Reason: Pain (severe 7-10) Morphine Sulfate (Morphine [employer] 30 Mg In 30 Ml) 30 mg IV ASDIRECTED PRN; Protocol PRN Reason: Pain Last Admin: 04/21/17 00:13 Dose: 30 mg Ondansetron HCl (Zofran) 8 mg IVPUSH ONETIME ONE Stop: 04/20/17 16:51 Last Admin: 04/20/17 17:22 Dose: 8 mg - Exam Wound/Incisions: Healing Well, Dressing Dry and Intact General: Alert, Oriented Cardiovascular: Regular Rate, Regular Rhythm GI/Abdominal Exam: Normal Bowel Sounds Skin: Warm, Dry, Intact - Problem List & Annotations (1) SBO (small bowel obstruction) SNOMED Code(s): 124457315 Code(s): K56.609 - UNSP INTESTNL OBST, UNSP TO PARTIAL VERSUS COMPLETE OBST Status: Acute Current Visit: Yes - Problem List Review Problem List Initiated/Reviewed/Updated: Yes - My Orders Last 24 Hours: Active Orders 24 hr Category Date Time Status Regular Diet [DIET] Diet 04/22/17 Dinner Active Bisacodyl [Dulcolax] Med 04/23/17 09:24 Once 10 mg RECTAL ONETIME ONE Convert IV to Saline Lock [OM.PC] Routine Oth 04/23/17 09:24 Ordered Medication Orders Hydrocodone Bitart/Acetaminophen ([place] 325-5 Mg) 1 tab PO Q4H PRN PRN Reason: Pain (mild 1-3) Last Admin: 04/23/17 01:32 Dose: 1 tab Admin: 04/22/17 20:29 Dose: 1 tab Hydrocodone Bitart/Acetaminophen ([place] 325-5 Mg) 2 tab PO Q4H PRN PRN Reason: Pain (moderate 4-6) Bisacodyl (Dulcolax) 10 mg RECTAL ONETIME ONE Stop: 04/23/17 09:25 Diatrizoate Meglum/Diatrizoate Sod (Gastrografin 37%) 30 ml PO . DIRECTED [facility] Last Admin: 04/20/17 19:04 Dose: 30 ml Enoxaparin Sodium (Lovenox) 30 mg SUBCUT Q24H [facility] Last Admin: 04/23/17 08:42 Dose: 30 mg Admin: 04/22/17 08:38 Dose: 30 mg Admin: 04/21/17 09:28 Dose: 30 mg Ketorolac Tromethamine (Toradol) 30 mg IVPUSH Q6H [facility] Last Admin: 04/23/17 07:31 Dose: 30 mg Admin: 04/23/17 01:27 Dose: 30 mg Admin: 04/22/17 20:24 Dose: 30 mg Admin: 04/22/17 13:33 Dose: 30 mg Admin: 04/22/17 07:25 Dose: 30 mg Admin: 04/22/17 02:12 Dose: 30 mg Admin: 04/21/17 20:05 Dose: 30 mg Admin: 04/21/17 14:14 Dose: 30 mg Admin: 04/21/17 08:08 Dose: 30 mg Sodium Chloride (Saline Flush) 10 ml FLUSH ASDIRECTED PRN PRN Reason: Keep Vein Open Last Admin: 04/20/17 23:50 Dose: 10 ml Admin: 04/20/17 19:50 Dose: 10 ml Admin: 04/20/17 17:13 Dose: 10 ml - Assessment Assessment (Free Text/Narrative):: doing well tolerating po - Plan Plan (Free Text/Narrative):: dulcolax suppository anticipate discharge to home later today.
[2017-04-23 14:05] VITALS: BP 118/72
== END 2017-04-23 13:47 | disposition home or self-care (01) | DRG 337 ==
LOC: FB.ED 16:42 → FB.MS 20:42
PROVIDERS: ADMIT Surgery; ATTEND Surgery
PROC: 0DNA0ZZ Release Jejunum, Open Approach (ICD-10-PCS; principal; 2017-04-20)
PROC: 0WJP0ZZ Inspection of Gastrointestinal Tract, Open Approach (ICD-10-PCS; 2017-04-20)
DX: K56.52 Intestinal adhesions [bands] with complete obstruction (principal)
CPT/HCPCS: 36415; 74177; 80048; 80076; 81001; 82150; 84132; 85014; 85018; 85025; 94150; 96361; 96365; 96375; 99285; A9270-GY; J0131; J0330; J0690; J1100; J1200; J1650; J1885; J2250; J2270; J2274; J2405; J2543; J2704; J3010; J3410; J7040; J7050; J7120; Q9967

== ENCOUNTER 2025-01-07 06:52 | Day surgery (SDC) | payer BC, OTHER ==
[2025-01-07] MEDS ORDERED: Propofol 200 MG/20 ML SDV IV ONE (06:53)
[2025-01-07] MEDS ORDERED: Midazolam 1 MG/ML 2 ML SDV IV ONE (06:53)
[2025-01-07] MEDS ORDERED: Sodium Chloride 0.9% 10 ML Syringe FLUSH PRN (07:00)
[2025-01-07 07:33] VITALS: BP 123/78; PULSE 72
[2025-01-07] MEDS: Lactated Ringers 1,000 ML IV SCH (08:15)
== END 2025-01-07 09:55 | disposition home or self-care (01) ==
LOC: FB.SDS 06:52
PROVIDERS: ATTEND Surgery
DX: Z12.11 Encounter for screening for malignant neoplasm of colon (principal); K64.1 Second degree hemorrhoids
CPT/HCPCS: 00812; 45378; A9270; J2003; J2250; J2704; J7120